=== PATIENT | female | born 1955 | race Caucasian/White ===

== ENCOUNTER → 2017-11-11 | Outpatient (CLI) | payer BC ==
[2017-11-11 10:47] LABS: ANION GAP 5 MEQ/L (8-16); BLOOD UREA NITROGEN 18 MG/DL (7-18); CARBON DIOXIDE LEVEL 29 MEQ/L (21-32); CHLORIDE LEVEL 110 MEQ/L (98-107); CREATININE FOR GFR 0.74 MG/DL (0.55-1.30); GLOMERULAR FILTRATION RATE > 60.0 (>45); GLUCOSE, FASTING 77 MG/DL (70-100); SODIUM LEVEL 144 MEQ/L (136-145)
[2017-11-11 10:51] LABS: CREATININE, SERUM 0.7 MG/DL (0.6-1.0)
[2017-11-11 10:58] LABS: TOTAL VOLUME, URINE 2250 ML
[2017-11-11 11:12] LABS: CREATININE 24 HOUR, URINE 1050.7 MG/24HR (600-1800); CREATININE CLEARANCE, URINE 104.2 ML/MIN (75-115); CREATININE, URINE 46.7 MG/DL; MALB URINE SIEMENS < 5.0 MG/L; MAU 24HR URINE 11.2 MG/24HR (0.0-30.0); MAU/MINUTE 7.8 MCG/MIN (0.0-20.0); TOTAL PROTEIN 24 HOUR URINE 128.2 MG/24HR (50-150); URINE TOTAL PROTEIN 5.7 MG/DL (0-12)
== END ==
LOC: M LAB 09:44
DX: Z00.5 Encounter for examination of potential donor of organ and tissue (principal)
CPT/HCPCS: 82575

== ENCOUNTER → 2018-01-11 | Outpatient (REF) | payer BC ==
[2018-01-11 14:39] LABS: IRON (FE) 70 UG/DL (50-170); PERCENT SATURATION 18.6 % (13.2-45.0); TOTAL IRON BINDING CAPACITY 376 UG/DL (250-450)
[2018-01-11 14:45] LABS: VITAMIN B12 LEVEL 863 PG/ML (247-911)
[2018-01-11 16:02] LABS: PRETREATED FOLATE FOR RBCFOL 15.6 NG/ML; RBC FOLATE 885.4 NG/ML (280-791)
== END ==
LOC: M LAB REF 13:19
DX: Z98.84 Bariatric surgery status (principal)
CPT/HCPCS: 83550

== ENCOUNTER → 2018-08-06 | Outpatient (REF) | payer OTHER ==
[2018-08-06 15:05] LABS: CALCIUM LEVEL 9.2 MG/DL (8.8-10.2); CREATININE FOR GFR 1.1 MG/DL (0.55-1.30); GLOMERULAR FILTRATION RATE 53.6 (>45); POTASSIUM SERUM 4.7 MEQ/L (3.5-5.1)
[2018-08-06 15:06] LABS: APPEARANCE, URINE CLEAR (CLEAR); BACTERIA, URINE AUTO 1+ (NEGATIVE); BILIRUBIN, URINE AUTO NEGATIVE (NEGATIVE); BLOOD, URINE BLOOD NEGATIVE (NEGATIVE); COLOR, URINE YELLOW (YELLOW); GLUCOSE, URINE (UA) AUTO NEGATIVE (NEGATIVE); KETONE, URINE AUTO NEGATIVE (NEGATIVE); LEUKOCYTE ESTERASE, URINE AUTO TRACE (NEGATIVE); NITRITE, URINE AUTO NEGATIVE (NEGATIVE); PROTEIN, URINE AUTO NEGATIVE (NEGATIVE); RBC, URINE AUTO 6 /HPF (0-3); SQUAMOUS EPITHELIAL CELL UR AU 3 /HPF (0-6); UROBILINOGEN, URINE AUTO 0.2 mg/dL (0.0-2.0); WBC, URINE AUTO 3 /HPF (0-3)
[2018-08-06 15:24] LABS: MAU/CREAT RATIO 4.8 MCG/MG (0.0-30.0)
== END ==
LOC: M LAB REF 12:26
PROVIDERS: ATTEND Nurse Practitioner Family
DX: Z52.4 Kidney donor (principal)

== ENCOUNTER → 2019-09-25 | Outpatient (REF) | payer BC ==
[2019-09-25 16:45] LABS: PERCENT SATURATION 6.6 % (13.2-45.0)
== END ==
LOC: M LAB REF 16:11
PROVIDERS: ATTEND Family Medicine
DX: D64.9 Anemia, unspecified (principal); Z98.84 Bariatric surgery status

== ENCOUNTER → 2019-12-15 | Outpatient (REF) | payer BC ==
[2019-12-15 18:48] LABS: PERCENT SATURATION 4.2 % (13.2-45.0)
== END ==
LOC: M LAB REF 17:16
PROVIDERS: ATTEND Family Medicine
DX: Z98.84 Bariatric surgery status (principal)

== ENCOUNTER → 2020-05-24 | Outpatient (CLI) | payer SELFPAY | LOC: M LABSMTC 11:55 | PROVIDERS: ATTEND Pediatrics | DX: Z20.828 Contact with and (suspected) exposure to other viral communicable diseases (principal) ==

== ENCOUNTER → 2020-10-26 | Outpatient (REF) | payer BC | LOC: M LAB REF 16:18 | PROVIDERS: ATTEND Family Medicine | DX: D64.9 Anemia, unspecified (principal) ==

== ENCOUNTER → 2020-12-03 | Outpatient (REF) | payer BC | LOC: M LAB REF 15:18 | PROVIDERS: ATTEND Family Medicine | DX: D64.9 Anemia, unspecified (principal) ==

== ENCOUNTER → 2021-01-28 | Outpatient (CLI) | payer BC ==
--- NOTE | 2021-01-28 10:29 | REP ---
INDICATION: NICOTINE DEPENDENCE. COMPARISON: Chest 07/20/2007 TECHNIQUE: Low-dose lung CT screening protocol FINDINGS: Of the lung lomeli are well inflated. There is no pleural thickening, calcified pleural plaque or apical scarring see no parenchymal mass, pulmonary nodule or acute infiltrates. No gross cardiomegaly. IMPRESSION: 1. Lung rads category 1, negative. No evidence of malignancy. Patients with this category of examination have less than 1% chance of malignancy at the time of examination. For patients at high risk of development of lung cancer, annual low-dose CT screening is recommended. <Electronically signed by Jose Luis Luke > 01/28/21 1027
== END ==
LOC: M RAD 10:07
PROVIDERS: ATTEND Family Medicine
DX: Z12.2 Encounter for screening for malignant neoplasm of respiratory organs (principal); F17.210 Nicotine dependence, cigarettes, uncomplicated

== ENCOUNTER → 2021-04-30 | Outpatient (CLI) | payer BC ==
[2021-04-30 09:49] LABS: HEMATOCRIT 41.8 % (36.0-47.0); HEMOGLOBIN 13.5 g/dl (12.0-15.5); MEAN CORPUSCULAR HEMOGLOBIN 28.4 pg (27.0-33.0); MEAN CORPUSCULAR HGB CONC 32.3 g/dl (32.0-36.5); PLATELET COUNT, AUTOMATED 277 10^3/uL (150-450); RED BLOOD COUNT 4.75 10^6/uL (4.00-5.40); WHITE BLOOD COUNT 7.8 10^3/uL (4.0-10.0)
[2021-04-30 10:07] LABS: C REACTIVE PROTEIN QUANTITATIV 0.67 MG/DL (0.00-0.30); RHEUMATOID FACTOR QUANT < 10.0 IU/ML (<15.0); URIC ACID 4.2 MG/DL (2.6-6.0)
[2021-04-30 10:12] LABS: ERYTHROCYTE SEDIMENTATION RATE 16 mm/hr (0-30)
== END ==
LOC: M LAB 08:25
PROVIDERS: ATTEND Physician Assistant
DX: M21.41 Flat foot [pes planus] (acquired), right foot (principal)

== ENCOUNTER → 2021-07-05 | Outpatient (REF) | payer BC | LOC: M LAB REF 12:58 | PROVIDERS: ATTEND Orthopaedic Surgery | DX: R22.32 Localized swelling, mass and lump, left upper limb (principal) ==

== ENCOUNTER → 2022-01-13 | Outpatient (CLI) | payer OTHER | LOC: M PLALAB 15:34 | PROVIDERS: ATTEND Physician Assistant | DX: M19.071 Primary osteoarthritis, right ankle and foot (principal) ==

== ENCOUNTER → 2022-05-31 | Outpatient (CLI) | payer OTHER ==
[~2022-05-31] MED LIST: ISOVUE-300 61% 50ML VIAL ONE; LIDOCAINE 1% MDV 20ML VIAL ONE; methylPREDNISolone SUSP 40MG/ML 1ML VIAL (DEPO MEDROL) ONE
== END ==
LOC: M PLAIMG 12:54
PROVIDERS: ATTEND Physician Assistant
DX: M19.071 Primary osteoarthritis, right ankle and foot (principal)
CPT/HCPCS: 20600; 20605; 76000; J1030

== ENCOUNTER 2022-12-27 13:05 | Observation (INO) | payer OTHER ==
[2022-12-27] VITALS (11 sets, daily range): BP systolic 143–159; BP diastolic 71–87; TEMP 96.8–99; O2SAT 95–100
[~2022-12-27] VITALS: Ht 157.5 cm; Wt 71.6 kg
[2022-12-27 13:58] LABS: BASO # 0.1 10^3/uL (0.0-0.2); BASO % 1.1 % (0.0-1.0); EOS # 0.2 10^3/uL (0.0-0.5); EOS % 2.1 % (0.0-3.0); HEMATOCRIT 22.8 % (36.0-47.0); LYMPH # 1.9 10^3/uL (1.5-5.0); LYMPH % 25.6 % (24.0-44.0); MEAN CORPUSCULAR HEMOGLOBIN 16.9 pg (27.0-33.0); MEAN CORPUSCULAR HGB CONC 27.6 g/dl (32.0-36.5); MEAN CORPUSCULAR VOLUME 61.1 fl (80.0-96.0); MONO # 0.6 10^3/uL (0.0-0.8); MONO % 8.4 % (2.0-8.0); NEUTROPHILS # 4.7 10^3/uL (1.5-8.5); NEUTROPHILS % 62.3 % (36.0-66.0); PLATELET COUNT, AUTOMATED 361 10^3/uL (150-450); RED BLOOD COUNT 3.73 10^6/uL (4.00-5.40); WHITE BLOOD COUNT 7.5 10^3/uL (4.0-10.0)
[2022-12-27 14:13] LABS: ALBUMIN 3.8 G/DL (3.2-5.2); ALKALINE PHOSPHATASE 81 U/L (46-116); ALT/SGPT 14 U/L (7.0-40); AST/SGOT 17 U/L (<34); BILIRUBIN,DIRECT < 0.1 MG/DL (<0.4); BILIRUBIN,TOTAL 0.3 MG/DL (0.3-1.2); BLOOD UREA NITROGEN 18 MG/DL (9-23); CALCIUM LEVEL 9.9 MG/DL (8.3-10.6); CARBON DIOXIDE LEVEL 23 MMOL/L (20-31); CHLORIDE LEVEL 109 MMOL/L (98-107); CREATININE FOR GFR 0.96 MG/DL (0.55-1.30); GLOMERULAR FILTRATION RATE > 60.0 (>45); GLUCOSE, FASTING 108 MG/DL (74-106); SODIUM LEVEL 137 MMOL/L (136-145); TOTAL PROTEIN 6.9 G/DL (5.7-8.2)
[2022-12-27 14:19] LABS: INR 0.88; PROTHROMBIN TIME 12.1 SECONDS (12.5-14.5)
[2022-12-27 14:35] LABS: THYROID STIMULATING HORMONE 1.044 uIU/ML (0.55-4.78)
[2022-12-27 14:37] LABS: HEMOGLOBIN 6.3 g/dl (12.0-15.5)
[2022-12-27 15:03] LABS: TOTAL IRON BINDING CAPACITY 449 UG/DL (250-425)
[2022-12-27 15:05] LABS: IRON (FE) 9 UG/DL (50-170)
[2022-12-27 15:07] LABS: FERRITIN 1.6 NG/ML (7.3-270.7)
[2022-12-27 15:08] LABS: FOLATE > 24.0 NG/ML (>5.4); VITAMIN B12 LEVEL 551 PG/ML (211-911)
[2022-12-27] MEDS ORDERED: MED REC IN PROGRESS XX SCH (15:20)
[2022-12-27] MEDS ORDERED: BUPR1TAB56 PO (15:51)
[2022-12-27] MEDS ORDERED: DIPH50CA PO (15:51)
[2022-12-27] MEDS ORDERED: VENL150C43 PO (15:51)
[2022-12-27] MEDS ORDERED: WOMETAB PO (15:51)
[2022-12-27] MEDS ORDERED: HOME MED LIST COMPLETE! XX SCH (16:00)
[2022-12-27] MEDS ORDERED: SENOKOT S TAB PO PRN (18:50)
[2022-12-27] MEDS ORDERED: NICOTINE POLACRILEX 2 MG GUM PO PRN (19:00)
[2022-12-27] MEDS ORDERED: FERR1TAB8 PO (19:01)
[2022-12-27] MEDS ORDERED: SUCR1TA PO (19:01)
[2022-12-27] MEDS ORDERED: NICO7DIS5 TD (19:01)
[2022-12-27] MEDS ORDERED: SENN-52 PO (19:01)
[2022-12-27] MEDS ORDERED: OMEP-173 PO (19:01)
[2022-12-27] MEDS ORDERED: ASCO50TA PO (19:01)
[2022-12-27] MEDS ORDERED: VENLAFAXINE **XR** 75MG CAPSULE PO SCH (21:00)
[2022-12-27] MEDS ORDERED: diphenhydrAMINE 50MG CAP PO SCH (21:00)
[2022-12-27 23:10] LABS: HEMATOCRIT 32.3 % (36.0-47.0)
[2022-12-27 23:38] LABS: HEMOGLOBIN 9.8 g/dl (12.0-15.5)
[2022-12-28 05:11] VITALS: BP 135/80; TEMP 98.2; O2SAT 98
[2022-12-28 06:32] LABS: ALBUMIN 3.5 G/DL (3.2-5.2); ALKALINE PHOSPHATASE 83 U/L (46-116); ALT/SGPT 16 U/L (7.0-40); AST/SGOT 22 U/L (<34); BLOOD UREA NITROGEN 15 MG/DL (9-23); CALCIUM LEVEL 9.3 MG/DL (8.3-10.6); CARBON DIOXIDE LEVEL 23 MMOL/L (20-31); CHLORIDE LEVEL 109 MMOL/L (98-107); CREATININE FOR GFR 0.89 MG/DL (0.55-1.30); GLOMERULAR FILTRATION RATE > 60.0 (>45); GLUCOSE, FASTING 121 MG/DL (74-106); POTASSIUM SERUM 4.1 MMOL/L (3.5-5.1); SODIUM LEVEL 139 MMOL/L (136-145); TOTAL PROTEIN 6.2 G/DL (5.7-8.2)
[2022-12-28] MEDS ORDERED: SUCRALFATE 1 GM TAB PO SCH (08:00)
[2022-12-28] MEDS ORDERED: OMEPRAZOLE 20MG CAP PO SCH (09:00)
[2022-12-28] MEDS ORDERED: FERROUS SULFATE 325MG TAB PO SCH (09:00)
[2022-12-28] MEDS ORDERED: ASCORBIC ACID 500 MG TAB PO SCH (09:00)
[2022-12-28] MEDS ORDERED: buPROPion (WELLBUTRIN SR) 100 MG SR TAB PO SCH (09:00)
== END 2022-12-28 09:10 | disposition home or self-care (01) ==
LOC: M ED 13:05 → EDBD 13:05 → M ED INP 15:02 → ENRESERV 15:44 → M MSPAV 16:18
PROVIDERS: ADMIT General Practice; ATTEND General Practice
DX: D64.9 Anemia, unspecified (principal); K92.2 Gastrointestinal hemorrhage, unspecified; Z98.84 Bariatric surgery status; D50.9 Iron deficiency anemia, unspecified; I10 Essential (primary) hypertension; Z86.010 Personal history of colon polyps; F17.210 Nicotine dependence, cigarettes, uncomplicated; Z88.0 Allergy status to penicillin; Z79.899 Other long term (current) drug therapy
CPT/HCPCS: 36415; 36430; 71045; 80048; 80053; 80076; 80503; 82607; 82728; 82746; 83550; 83880; 84443; 85014; 85018; 85025; 85046; 85610; 86850; 86900; 86901; 86920; 87486; 87581; 87633; 87798; 93005; 93041; 94760; 99285; P9016; P9040

== ENCOUNTER → 2023-07-06 | Outpatient (REF) | payer OTHER ==
[~2023-07-06] MED LIST changes: +ASCO50TA PO; +BUPR1TAB56 PO; +DIPH50CA PO; +FERR1TAB8 PO; -ISOVUE-300 61% 50ML VIAL ONE; -LIDOCAINE 1% MDV 20ML VIAL ONE; +NICO7DIS5 TD; +OMEP-173 PO; +SENN-52 PO; +SUCR1TA PO; +VENL150C43 PO; +WOMETAB PO; -methylPREDNISolone SUSP 40MG/ML 1ML VIAL (DEPO MEDROL) ONE
[2023-07-06 19:37] LABS: PERCENT SATURATION 76.8 % (13.2-45.0)
[2023-07-06 19:39] LABS: FERRITIN 5.1 NG/ML (7.3-270.7)
== END ==
LOC: M LAB REF 16:20
PROVIDERS: ATTEND Family Medicine
DX: Z98.84 Bariatric surgery status (principal); D50.9 Iron deficiency anemia, unspecified

== ENCOUNTER → 2023-10-16 | Outpatient (CLI) | payer MEDICARE, OTHER | LOC: M RAD 07:43 | PROVIDERS: ATTEND Family Medicine | DX: Z12.2 Encounter for screening for malignant neoplasm of respiratory organs (principal); F17.210 Nicotine dependence, cigarettes, uncomplicated ==

== ENCOUNTER → 2024-05-12 | Outpatient (REF) | payer MEDICARE | LOC: M LAB REF 12:53 | PROVIDERS: ATTEND Family Medicine | DX: R30.0 Dysuria (principal); R35.0 Frequency of micturition ==

== ENCOUNTER → 2024-07-04 | Outpatient (REF) | payer MEDICARE | LOC: M LAB REF 11:49 | PROVIDERS: ATTEND Family Medicine | DX: D50.9 Iron deficiency anemia, unspecified (principal) ==

== ENCOUNTER → 2024-10-29 | Outpatient (REF) | payer MEDICARE ==
[~2024-10-29] MED LIST changes: -BUPR1TAB56 PO; +BUPR200T45 PO
[2024-10-29 14:50] LABS: FERRITIN 7.9 NG/ML (7.3-270.7)
[2024-10-29 15:23] LABS: HEPATITIS C VIRUS ABY INDEX 0.02 INDEX (<0.8)
== END ==
LOC: M LAB REF 12:21
PROVIDERS: ATTEND Family Medicine
DX: D50.9 Iron deficiency anemia, unspecified (principal); Z13.89 Encounter for screening for other disorder

== ENCOUNTER → 2025-03-25 | Outpatient (REF) | payer MEDICARE ==
[~2025-03-25] MED LIST changes: -DIPH50CA PO; +DIPH50CA31 PO
== END ==
LOC: M LAB REF 11:47
PROVIDERS: ATTEND Family Medicine
DX: D50.9 Iron deficiency anemia, unspecified (principal)